=== PATIENT | male | born 1955 | race Caucasian/White ===

== ENCOUNTER 2017-07-23 01:59 | Inpatient (IN) | payer MEDICAID ==
[2017-07-23] VITALS (10 sets, daily range): BP systolic 93–131; BP diastolic 65–81
[~2017-07-23] VITALS: Ht 188 cm; Wt 102.0 kg
[2017-07-23] MEDS ORDERED: piperacillin/tazo 3.375gm/50ml 50 ML IV ONE (02:10)
[2017-07-23] MEDS ORDERED: HYDROmorphone 1 mg/ml syringe IV PRN (02:55)
[2017-07-23] MEDS ORDERED: acetaminophen 325mg tablet PO PRN ×2 (02:55)
[2017-07-23] MEDS ORDERED: magnesium hydroxide 30ml (MOM) UD suspension PO PRN (02:55)
[2017-07-23] MEDS ORDERED: ondansetron/PF 4mg/2ml inj IV PRN (02:55)
[2017-07-23] MEDS ORDERED: mag hydrox/Alum hydrox/simeth 30ml oral suspension PO PRN (02:55)
[2017-07-23] MEDS ORDERED: LORazepam 1 MG tablet PO PRN (03:00)
[2017-07-23] MEDS: normal saline 1000ml 1,000 ML IV SCH ×3 (03:44→15:38)
[2017-07-23] MEDS: HYDROmorphone 1 mg/ml syringe IV PRN (03:45)
[2017-07-23 05:11] LABS: BASOPHILS % (AUTO) 0 % (0-1); EOSINOPHILS # (AUTO) 0.3 X10'3 (0-0.9); EOSINOPHILS % (AUTO) 1.7 % (0-6); HEMATOCRIT 35.4 % (42.0-52.0); LYMPHOCYTES # (AUTO) 2.1 X10'3 (1.1-4.8); LYMPHOCYTES % (AUTO) 11.6 % (21-51); MEAN CORPUSCULAR HEMOGLOBIN 32.1 PG (27.0-31.0); MEAN CORPUSCULAR HGB CONC 33.8 % (33.0-36.5); MEAN PLATELET VOLUME 8.7 FL (7.4-10.4); MONOCYTES # (AUTO) 1.6 X10'3 (0-0.9); MONOCYTES % (AUTO) 8.7 % (2-12); NEUTROPHILS # (AUTO) 14.3 X10'3 (1.8-7.7); PLATELET COUNT 356 X10'3 (140-440); RED BLOOD COUNT 3.73 X10'6 (4.70-6.10); RED CELL DISTRIBUTION WIDTH 15.8 % (11.5-14.5); WHITE BLOOD COUNT 18.3 X10'3 (4.5-11.0)
[2017-07-23 05:37] LABS: ALBUMIN 1.9 G/DL (3.4-5.0); ANION GAP 7 (8-16); BLOOD UREA NITROGEN 19 MG/DL (7-18); CALCIUM 8.3 MG/DL (8.5-10.1); CHLORIDE 99 MMOL/L (99-107); CREATININE 0.95 MG/DL (0.60-1.10); GLUCOSE 99 MG/DL (70-104); POTASSIUM 3.2 MMOL/L (3.5-5.1); SODIUM 133 MMOL/L (135-145); TOTAL CARBON DIOXIDE 27.5 MMOL/L (24-32); eGFR 81 ML/MIN
[2017-07-23] MEDS ORDERED: LORA1TAB PO (05:51)
[2017-07-23] MEDS ORDERED: LISI1TAB11 PO (05:51)
[2017-07-23] MEDS ORDERED: ATEN-169 PO (05:51)
[2017-07-23] MEDS ORDERED: FLO0.4C PO (05:51)
[2017-07-23] MEDS ORDERED: DOXE10CA2 PO (05:51)
[2017-07-23] MEDS ORDERED: CITA20TA11 PO (05:51)
[2017-07-23] MEDS ORDERED: lactobacillus rhamnosus 10,000 MMU CELLS/CAPSULE PO SCH (07:30)
[2017-07-23] MEDS ORDERED: CITALOpram 10mg tablet PO SCH (08:00)
[2017-07-23] MEDS: piperacillin/tazo 3.375gm/50ml 50 ML IV SCH ×3 (08:33→19:47)
[2017-07-23] MEDS ORDERED: potassium Cl 40MEQ/NS 500ml 500 ML IV PRN ×2 (09:35)
[2017-07-23] MEDS ORDERED: magnesium 4gm in 100ml NS 100 ML IV PRN (09:35)
[2017-07-23] MEDS ORDERED: magnesium Cl slow-release 64mg tablet PO PRN (09:35)
[2017-07-23] MEDS ORDERED: potassium Cl 20 mEq SR tablet PO PRN (09:35)
[2017-07-23] MEDS ORDERED: magnesium 2GM in 50ml NS 50 ML IV PRN (09:35)
[2017-07-23] MEDS ORDERED: midazolam 2 mg/2 ml injection IV PRN (10:15)
[2017-07-23] MEDS ORDERED: LIDOcaine 1%/PF (10mg/ml) 5ml vial SQ ONE (10:15)
[2017-07-23] MEDS ORDERED: fentaNYL/PF 50MCG/1 ML 2ML syringe IV PRN (10:15)
[2017-07-23] MEDS ORDERED: fentaNYL/PF 50MCG/1 ML 2ML syringe ONE (10:43)
[2017-07-23] MEDS ORDERED: LIDOcaine 1%/PF (10mg/ml) 5ml vial ONE (10:48)
[2017-07-23] MEDS: potassium Cl 20 mEq SR tablet PO PRN ×2 (12:38→19:47)
[2017-07-23] MEDS: tamsulosin 0.4mg capsule PO SCH (21:16)
[2017-07-24] MEDS: potassium Cl 20 mEq SR tablet PO PRN ×4 (01:26→20:59)
[2017-07-24] MEDS: piperacillin/tazo 3.375gm/50ml 50 ML IV SCH ×4 (01:26→20:54)
[2017-07-24] MEDS: HYDROmorphone 1 mg/ml syringe IV PRN (01:27)
[2017-07-24] MEDS: normal saline 1000ml 1,000 ML IV SCH ×2 (01:43→14:07)
[2017-07-24 05:38] LABS: BASOPHILS % (AUTO) 0.3 % (0-1); EOSINOPHILS # (AUTO) 0.2 X10'3 (0-0.9); EOSINOPHILS % (AUTO) 1.5 % (0-6); HEMATOCRIT 38.6 % (42.0-52.0); HEMOGLOBIN 12.8 g/dl (14.0-17.9); LYMPHOCYTES # (AUTO) 2.3 X10'3 (1.1-4.8); LYMPHOCYTES % (AUTO) 19.2 % (21-51); MEAN CORPUSCULAR HEMOGLOBIN 31.6 PG (27.0-31.0); MEAN CORPUSCULAR VOLUME 95.7 FL (78-98); MONOCYTES # (AUTO) 1.4 X10'3 (0-0.9); MONOCYTES % (AUTO) 11.4 % (2-12); NEUTROPHILS # (AUTO) 8.2 X10'3 (1.8-7.7); NEUTROPHILS % (AUTO) 67.6 % (42-75); PLATELET COUNT 375 X10'3 (140-440); RED BLOOD COUNT 4.04 X10'6 (4.70-6.10); RED CELL DISTRIBUTION WIDTH 15.6 % (11.5-14.5); WHITE BLOOD COUNT 12.2 X10'3 (4.5-11.0)
[2017-07-24 05:48] LABS: ALBUMIN 2.2 G/DL (3.4-5.0); ANION GAP 14 (8-16); BLOOD UREA NITROGEN 9 MG/DL (7-18); BUN/CREATININE RATIO 8.8 (5.4-32.0); CALCIUM 8.6 MG/DL (8.5-10.1); CHLORIDE 103 MMOL/L (99-107); CREATININE 1.02 MG/DL (0.60-1.10); GLUCOSE 95 MG/DL (70-104); MAGNESIUM 1.7 MG/DL (1.5-2.4); POTASSIUM 3.4 MMOL/L (3.5-5.1); SODIUM 139 MMOL/L (135-145); TOTAL CARBON DIOXIDE 22.5 MMOL/L (24-32); eGFR 75 ML/MIN
[2017-07-24 07:00] VITALS: BP 135/82
[2017-07-24] MEDS: LACTOBACILLUS RHAMNOSUS GG 15 billion unit sprinkle caps PO SCH (08:44)
[2017-07-24] MEDS: citalopram 20mg tablet PO SCH (08:44)
[2017-07-24] MEDS ORDERED: pneumococcal 23-VAL P-sac vacc 25 mcg/0.5ml vial IMVAC ONE (10:00)
[2017-07-24] MEDS ORDERED: FLU VACC QS2017-18 36MOS UP/PF 60 MCG/0.5 ML SYRINGE IMVAC ONE (10:00)
[2017-07-24 11:06] LABS: C DIFF ANTIGEN NEGATIVE (NEGATIVE); C DIFF SPECIMEN=DIARRHEA? ACCEPTABLE; C DIFFICILE TOXINS A&B NEGATIVE (Neg)
[2017-07-24 11:30] VITALS: BP 116/81
[2017-07-24] MEDS ORDERED: diphenoxylate/atropine tablet (Lomotil) PO PRN (18:40)
[2017-07-24 20:00] VITALS: BP 130/83
[2017-07-24] MEDS: tamsulosin 0.4mg capsule PO SCH (20:54)
[2017-07-24] MEDS: psyllium seed 3.4 gm packet PO SCH (20:55)
[2017-07-25] VITALS: BP 130/84
[2017-07-25] MEDS: normal saline 1000ml 1,000 ML IV SCH ×3 (00:14→20:03)
[2017-07-25] MEDS: piperacillin/tazo 3.375gm/50ml 50 ML IV SCH ×4 (01:23→19:57)
[2017-07-25 04:29] LABS: BASOPHILS # (AUTO) 0.1 X10'3 (0-0.2); BASOPHILS % (AUTO) 0.8 % (0-1); EOSINOPHILS # (AUTO) 0.2 X10'3 (0-0.9); EOSINOPHILS % (AUTO) 2.2 % (0-6); HEMATOCRIT 36.2 % (42.0-52.0); LYMPHOCYTES # (AUTO) 2.5 X10'3 (1.1-4.8); LYMPHOCYTES % (AUTO) 25.1 % (21-51); MEAN CORPUSCULAR HGB CONC 33.1 % (33.0-36.5); MEAN CORPUSCULAR VOLUME 96.8 FL (78-98); MEAN PLATELET VOLUME 8.8 FL (7.4-10.4); MONOCYTES # (AUTO) 1.2 X10'3 (0-0.9); MONOCYTES % (AUTO) 11.8 % (2-12); NEUTROPHILS % (AUTO) 60.1 % (42-75); PLATELET COUNT 351 X10'3 (140-440); RED BLOOD COUNT 3.74 X10'6 (4.70-6.10); RED CELL DISTRIBUTION WIDTH 16.3 % (11.5-14.5); WHITE BLOOD COUNT 9.9 X10'3 (4.5-11.0)
[2017-07-25 04:54] LABS: ALBUMIN 2.1 G/DL (3.4-5.0); ANION GAP 11 (8-16); BLOOD UREA NITROGEN 5 MG/DL (7-18); BUN/CREATININE RATIO 5.3 (5.4-32.0); CALCIUM 8.4 MG/DL (8.5-10.1); CHLORIDE 106 MMOL/L (99-107); CREATININE 0.95 MG/DL (0.60-1.10); GLUCOSE 81 MG/DL (70-104); MAGNESIUM 1.6 MG/DL (1.5-2.4); POTASSIUM 3.7 MMOL/L (3.5-5.1); SODIUM 140 MMOL/L (135-145); TOTAL CARBON DIOXIDE 22.9 MMOL/L (24-32); eGFR 81 ML/MIN
[2017-07-25 07:00] VITALS: BP 130/90
[2017-07-25] MEDS: citalopram 20mg tablet PO SCH (08:20)
[2017-07-25] MEDS: LACTOBACILLUS RHAMNOSUS GG 15 billion unit sprinkle caps PO SCH (08:20)
[2017-07-25 11:20] VITALS: BP 134/96
[2017-07-25 18:40] VITALS: BP 133/88
[2017-07-25] MEDS: psyllium seed 3.4 gm packet PO SCH (20:00)
[2017-07-25] MEDS: tamsulosin 0.4mg capsule PO SCH (20:00)
[2017-07-25] MEDS ORDERED: psyllium seed 3.4 gm packet PO SCH (21:00)
[2017-07-26] VITALS: BP 151/100
[2017-07-26 05:23] LABS: BASOPHILS # (AUTO) 0.1 X10'3 (0-0.2); BASOPHILS % (AUTO) 1.1 % (0-1); EOSINOPHILS # (AUTO) 0.3 X10'3 (0-0.9); EOSINOPHILS % (AUTO) 3.2 % (0-6); HEMATOCRIT 38.2 % (42.0-52.0); HEMOGLOBIN 12.6 g/dl (14.0-17.9); LYMPHOCYTES # (AUTO) 2.7 X10'3 (1.1-4.8); LYMPHOCYTES % (AUTO) 27.9 % (21-51); MEAN CORPUSCULAR HEMOGLOBIN 31.8 PG (27.0-31.0); MEAN CORPUSCULAR VOLUME 96.6 FL (78-98); MEAN PLATELET VOLUME 8.8 FL (7.4-10.4); MONOCYTES # (AUTO) 1.2 X10'3 (0-0.9); MONOCYTES % (AUTO) 12.3 % (2-12); NEUTROPHILS # (AUTO) 5.5 X10'3 (1.8-7.7); NEUTROPHILS % (AUTO) 55.5 % (42-75); PLATELET COUNT 392 X10'3 (140-440); RED BLOOD COUNT 3.95 X10'6 (4.70-6.10); RED CELL DISTRIBUTION WIDTH 16.2 % (11.5-14.5); WHITE BLOOD COUNT 9.8 X10'3 (4.5-11.0)
[2017-07-26 05:46] LABS: ALBUMIN 2.4 G/DL (3.4-5.0); ANION GAP 9 (8-16); BLOOD UREA NITROGEN 4 MG/DL (7-18); BUN/CREATININE RATIO 5.1 (5.4-32.0); CALCIUM 8.8 MG/DL (8.5-10.1); CHLORIDE 106 MMOL/L (99-107); CREATININE 0.79 MG/DL (0.60-1.10); GLUCOSE 82 MG/DL (70-104); MAGNESIUM 1.5 MG/DL (1.5-2.4); POTASSIUM 3.7 MMOL/L (3.5-5.1); SODIUM 138 MMOL/L (135-145); TOTAL CARBON DIOXIDE 22.6 MMOL/L (24-32); eGFR > 90 ML/MIN
[2017-07-26] MEDS: normal saline 1000ml 1,000 ML IV SCH (06:43)
[2017-07-26] MEDS: citalopram 20mg tablet PO SCH (06:49)
[2017-07-26] MEDS: LACTOBACILLUS RHAMNOSUS GG 15 billion unit sprinkle caps PO SCH (06:49)
[2017-07-26 08:00] VITALS: BP 155/102
[2017-07-26] MEDS ORDERED: CLIN150C2 PO (10:33)
[2017-07-26] MEDS ORDERED: LEVO500T2 PO (10:33)
[2017-07-26] MEDS ORDERED: LACT1CAP74 PO (10:33)
[2017-07-26 11:00] VITALS: BP 147/86
== END 2017-07-26 12:50 | disposition home or self-care (01) | DRG 225 ==
LOC: ER 02:00 → ED HOLD 02:55 → SUR 3N 03:25
PROVIDERS: ADMIT Internal Medicine; ATTEND Family Medicine
PROC: 0D9J30Z Drainage of Appendix with Drainage Device, Percutaneous Approach (ICD-10-PCS; principal; 2017-07-23)
DX: K35.2 Acute appendicitis with generalized peritonitis (principal); N17.9 Acute kidney failure, unspecified; I95.9 Hypotension, unspecified; E87.1 Hypo-osmolality and hyponatremia; F12.90 Cannabis use, unspecified, uncomplicated; B96.20 Unspecified Escherichia coli [E. coli] as the cause of diseases classified elsewhere; E86.0 Dehydration; B95.4 Other streptococcus as the cause of diseases classified elsewhere; F17.210 Nicotine dependence, cigarettes, uncomplicated; F32.9 Major depressive disorder, single episode, unspecified; F41.9 Anxiety disorder, unspecified; I10 Essential (primary) hypertension; N40.0 Benign prostatic hyperplasia without lower urinary tract symptoms; Z79.899 Other long term (current) drug therapy; Z71.6 Tobacco abuse counseling; Z23 Encounter for immunization
CPT/HCPCS: 36415; 49406; 71045; 74176; 80048; 83735; 85025; 87070; 87077; 87186; 87324; 87449; 90732; 93005; 96365; 99285; A6257; A6258; C1729; J1170; J2001; J2543; J3010; J7030; Q2037